=== PATIENT | male | born 1950 | race Caucasian/White ===

== ENCOUNTER → 2020-10-24 | Outpatient (CLI) | payer MEDICARE | LOC: M PLAIMG 12:52 | PROVIDERS: ATTEND Internal Medicine Rheumatology | DX: M1A.3710 Chronic gout due to renal impairment, right ankle and foot, without tophus (tophi) (principal) ==

== ENCOUNTER → 2021-08-07 | Outpatient (REF) | payer MEDICARE ==
[2021-08-07 17:10] LABS: RHEUMATOID FACTOR QUANT < 10.0 IU/ML (<15.0); URIC ACID 2.8 MG/DL (3.5-7.2)
[2021-08-09 12:12] LABS: SSA SJOGRENS A <0.2 AI (0.0-0.9); SSB SJOGRENS B <0.2 AI (0.0-0.9)
== END ==
LOC: M SFHCRHEU 12:17
PROVIDERS: ATTEND Internal Medicine Rheumatology
DX: M1A.3710 Chronic gout due to renal impairment, right ankle and foot, without tophus (tophi) (principal); M79.641 Pain in right hand; M89.49 Other hypertrophic osteoarthropathy, multiple sites; R74.01 Elevation of levels of liver transaminase levels; R76.8 Other specified abnormal immunological findings in serum; Z79.899 Other long term (current) drug therapy